=== PATIENT | male | born 1970 | race Caucasian/White ===

== ENCOUNTER 2020-07-18 15:26 | Inpatient (IN) ==
[2020-07-18 16:45] LABS: Urine Appearance Clear; Urine Bilirubin Negative (Negative); Urine Blood Negative (Negative); Urine Color Straw; Urine Glucose Negative (Negative); Urine Ketones Negative (Negative); Urine Nitrite Negative (Negative); Urine Protein Negative (Negative); Urine Specific Gravity 1.004 (1.010-1.030); Urine Urobilinogen Negative (Negative)
[2020-07-18 17:02] LABS: ABS Basophils 0.1 10^3/ul (0-0.2); ABS Eosinophils 0.2 10^3/ul (0-0.6); ABS Lymphocytes 1.8 10^3/ul (1.0-4.8); ABS Monocytes 0.3 10^3/ul (0-0.8); ABS Neutrophils 2.1 10^3/ul (1.5-7.7); Eosinophil % 4.1 %; Hematocrit 42 % (42-52); Hemoglobin 14.6 g/dL (14.0-18.0); Lymphocyte % 40.8 %; Mean Corpuscular HGB Conc 35 g/dL (31-36); Mean Corpuscular Hemoglobin 35 pg (27-31); Mean Corpuscular Volume 99 fL (80-94); Mean Platelet Volume 7.7 fL (7.4-10.4); Nucleated Red Blood Cells % 0.1; Platelet Count 205 10^3/uL (150-450); Red Blood Count 4.19 10^6 /uL (4.18-5.48); Red Cell Distribution Width 13 % (10-15); White Blood Count 4.3 10^3/uL (3.5-10.8)
[2020-07-18 17:09] LABS: Urine Benzodiazepine Screen None Detected (None Detect); Urine Cannabinoids Screen Presumptive Positive (None Detect); Urine Opiates Screen None Detected (None Detect)
[2020-07-18 17:21] LABS: ALT 18 U/L (7-52); AST 21 U/L (13-39); Albumin 4.1 g/dL (3.2-5.2); Albumin/Globulin Ratio 1.6 (1-3); Alkaline Phosphatase 79 U/L (34-104); Anion Gap 8 mmol/L (2-11); BUN/Creatinine Ratio 11.7 (8-20); Blood Urea Nitrogen 11 mg/dL (6-24); CO2 Carbon Dioxide 25 mmol/L (22-32); Calcium 8.9 mg/dL (8.6-10.3); Chloride 105 mmol/L (101-111); EGFR African American 103.6 (>60); EGFR Non-African American 85.7 (>60); Globulin 2.5 g/dL (2-4); Glucose 96 mg/dL (70-100); Potassium 4.1 mmol/L (3.5-5.0); Sodium 138 mmol/L (135-145); Total Protein 6.6 g/dL (6.4-8.9)
[2020-07-18 17:34] LABS: Acetaminophen < 15 mcg/mL; Alcohol, S 142 mg/dL (<10); Salicylate < 2.50 mg/dL (<30)
[2020-07-19] MEDS ORDERED: Al Hydrox/Mg Hydrox/Simet LIQ 30 ML UDC PO PRN (02:26)
[2020-07-19] MEDS ORDERED: LORazepam PO 0-6 for WAM protocol PO SCH (03:00)
[2020-07-19] MEDS: Vitamin THERAPEUTIC TAB PO SCH (12:27)
[2020-07-19] MEDS: DULoxetine DR 60 mg CAP PO SCH (21:00)
[2020-07-20] MEDS: DULoxetine DR 60 mg CAP PO SCH ×2 (11:59→20:29)
[2020-07-20] MEDS: Vitamin THERAPEUTIC TAB PO SCH (11:59)
[2020-07-21 08:29] LABS: HDL Cholesterol 63.2 mg/dL
[2020-07-21] MEDS: DULoxetine DR 60 mg CAP PO SCH ×2 (09:44→21:21)
[2020-07-21] MEDS: Vitamin THERAPEUTIC TAB PO SCH (09:44)
[2020-07-22] MEDS: Vitamin THERAPEUTIC TAB PO SCH (10:54)
[2020-07-22] MEDS: DULoxetine DR 60 mg CAP PO SCH ×2 (10:54→21:53)
[2020-07-23] MEDS: DULoxetine DR 60 mg CAP PO SCH ×2 (14:16→20:46)
[2020-07-23] MEDS: Vitamin THERAPEUTIC TAB PO SCH (14:17)
[2020-07-24] MEDS: Vitamin THERAPEUTIC TAB PO SCH (09:06)
[2020-07-24] MEDS: DULoxetine DR 60 mg CAP PO SCH ×2 (09:06→20:45)
[2020-07-25] MEDS: Vitamin THERAPEUTIC TAB PO SCH (08:32)
[2020-07-25] MEDS: DULoxetine DR 60 mg CAP PO SCH ×2 (08:32→20:45)
[2020-07-26 08:32] VITALS: BP 122/89
[2020-07-26] MEDS: DULoxetine DR 60 mg CAP PO SCH (08:53)
[2020-07-26] MEDS: Vitamin THERAPEUTIC TAB PO SCH (08:54)
== END 2020-07-26 17:45 | disposition home or self-care (01) | DRG 751 ==
LOC: ED 15:26 → BSU 22:45
PROVIDERS: ADMIT Psychiatry & Neurology Psychiatry; ATTEND Psychiatry & Neurology Psychiatry